=== PATIENT | female | born 1990 | race Caucasian/White ===

== ENCOUNTER 2019-06-19 00:52 | Emergency (ER) | payer OTHER ==
--- NOTE | 2019-06-19 02:57 | ED ---
Throat Pain/Nasal Congestion - HPI Summary HPI Summary: 29 year old F presenting to [facility] complains of right ear pain rated 7/10 in severity since waking up 3 hours ago. Yesterday 06/18, she developed a headache located behind her right eye at work. States she took some Tylenol which alleviated headache. When she woke up 3 hours ago today 06/19, she developed sharp right ear pain radiating to posterior head and into right sided neck. Has pain with chewing secondary to the right ear pain. No fever, sore throat, difficulty swallowing, cough, chest pain, SOB, nausea/vomiting, diarrhea, dysuria. Symptoms aggravated by nothing. Symptoms alleviated by nothing. Denies pertinent PMHx. Admits to smoking. [facility] March 2019. Patient is . No vaginal bleeding. States she has had miscarriages before. States she has an appointment with OB in [place] in the next 1-2 weeks. - History of Current Complaint Chief Complaint: EDEarPain Time Seen by Provider: 06/19/19 02:19 Hx Obtained From: Patient Onset/Duration: Lasting Hours - 3, Still Present Severity: Moderate - 7/10 Associated Signs And Symptoms: Positive: Negative - fever, sore throat, difficulty swallowing, cough, chest pain, SOB, nausea/vomiting, diarrhea, dysuria - Allergies/Home Medications Allergies/Adverse Reactions: Allergies Allergy/AdvReac Type Severity Reaction Status Date / Time No Known Allergies Allergy Verified 06/19/19 00:58 PMH/Surg Hx/FS Hx/Imm Hx Endocrine/Hematology History: Denies: Hx Diabetes Respiratory History: Denies: Hx Asthma - Surgical History Surgery Procedure, Year, and Place: none Infectious Disease History: No Infectious Disease History: Denies: Traveled Outside the [place] in Last 30 Days - Family History Known Family History: Negative: Seizure Disorder - Social History Alcohol Use: None Substance Use Type: Reports: None Hx Tobacco Use: Yes Smoking Status (MU): Heavy Every Day Tobacco Smoker Review of Systems Negative: Fever ENT: Negative - difficulty swallowing Positive: Ear Ache - right. Negative: Sore Throat Negative: Chest Pain Negative: Shortness Of Breath, Cough Negative: Vomiting, Diarrhea, Nausea Negative: dysuria All Other Systems Reviewed And Are Negative: Yes Physical Exam - Summary Physical Exam Summary: General: Well-developed, Well-nourished FEMALE. No acute distress. HEENT: Normocephalic, Atraumatic. Eyes: Conjuctiva normal, PERRL. Ears: Right ear has clear fluid, slight bulge, good light reflex, no erythema Nares: (-) discharge, (-) erythema. Oropharynx: Clear, mucous membranes moist, (-) exudates. Neck: Soft, FROM, (-) lymphadenopathy, (-) thyromegaly, (-) JVD. Cardiovascular: Normal sinus rhythm, (-) murmur. Lungs: Clear to auscultation bilaterally (-) wheezes, (-) rales, (-) rhonchi. Abdomen: Soft, non-tender, non-distended, (-) organomegaly, normal bowel sounds. Back: (-) CVA tenderness Extremities: No edema. Skin: Warm, dry, (-) rash. Neuro: Alert and oriented x3, no focal deficits. Psychiatric: Mood normal, affect normal. Triage Information Reviewed: Yes Vital Signs On Initial Exam: Initial Vitals Temp Pulse Resp BP Pulse Ox 98 F 90 18 143/100 98 06/19/19 00:55 06/19/19 00:55 06/19/19 00:55 06/19/19 00:55 06/19/19 00:55 Vital Signs Reviewed: Yes Procedures - Sedation Patient Received Moderate/Deep Sedation with Procedure: No Diagnostics - Vital Signs Vital Signs Temp Pulse Resp BP Pulse Ox 06/19/19 00:55 98 F 90 18 143/100 98 - Laboratory Lab Results: Lab Results 06/19/19 Range/Units 01:35 Beta HCG, Quant 44603.00 mIU/mL Lab Statement: Any lab studies that have been ordered have been reviewed, and results considered in the medical decision making process. EENT Course/Dx - Course Course Of Treatment: 29-year-old female complaining of headache behind her right eye and right ear pain. Concerned about possible . After history and physical and review of her chart. Discussed her labs with her which demonstrated . She is also had laboratories done and of April beginning may which showed positive hCGs. Patient states she was just concerned because she has lost pregnancies in the past. For her headache we have limited options because Tylenol did not help her. We will try Reglan for her headache. Her ear demonstrates fluid behind the eardrum but no obvious infection. Advised Benadryl. Plenty of fluids and rest. Follow-up with PCP. Follow-up sooner for any worsening symptoms. - Diagnoses Provider Diagnoses: Right ear pain, , incidental, Tobacco use Discharge ED - Sign-Out/Discharge Documenting (check all that apply): Patient Departure - Discharge - Discharge Plan Condition: Stable Disposition: HOME Patient Education Materials: (ED), Earache (ED) Referrals: Gifty Lea NP [Primary Care Provider] - 3 Days Additional Instructions: Recommend Benadryl and Tylenol. Please follow up with your primary care physician within 3 days. Please return to Emergency Department for any new or worsening symptoms. - Billing Disposition and Condition Condition: STABLE Disposition: Home - Attestation Statements Document Initiated by Scribe: Yes Documenting Scribe: Gavi Hillman Provider For Whom Alba is Documenting (Include Credential): Marissa Ortiz MD Scribe Attestation: Gavi Pritchett, scribed for Marissa Ortiz MD on 06/19/19 at 0453. Scribe Documentation Reviewed: Yes Provider Attestation: The documentation as recorded by the Gavi mendenhall accurately reflects the service I personally performed and the decisions made by me, Marissa Ortiz MD Status of Scribe Document: Viewed
[2019-06-19] MEDS ORDERED: Metoclopramide TAB* 10 MG PO ONE (03:00)
[2019-06-19] MEDS ORDERED: diPHENhydraMINE PO* 25 MG PO ONE (03:00)
[2019-06-19 03:26] VITALS: BP 125/86
== END 2019-06-19 03:24 | disposition home or self-care (01) ==
LOC: ED 00:52
DX: H92.01 Otalgia, right ear (principal); O99.330 Smoking (tobacco) complicating pregnancy, unspecified trimester; F17.200 Nicotine dependence, unspecified, uncomplicated; Z3A.00 Weeks of gestation of pregnancy not specified
CPT/HCPCS: 36415; 84702; 99282; A9270-GY

== ENCOUNTER 2019-07-24 13:35 | Emergency (ER) | payer OTHER ==
[2019-07-24 17:42] VITALS: BP 152/101
== END 2019-07-24 19:39 | disposition left against medical advice (07) ==
LOC: ED 13:35
DX: R10.9 Unspecified abdominal pain (principal); Z53.21 Procedure and treatment not carried out due to patient leaving prior to being seen by health care provider